=== PATIENT | male | born 1990 | race Caucasian/White ===

== ENCOUNTER 2020-01-23 19:03 | Outpatient (REF) | payer BC, SELFPAY ==
[2020-01-28 13:16] LABS: Varicella IgG Antibody Positive
[2020-01-28 16:19] LABS: HIV-1/2 Ag & Ab Screen Negative (Negative)
[2020-01-28 16:33] LABS: HSV Type 1 Ab, IgG Negative (Negative); Syphilis Serology (RPR) Negative (Negative)
[2020-01-28 16:34] LABS: HSV Type 2 Ab, IgG Negative
== END 2020-01-23 19:23 ==
LOC: NCHCN 19:03
PROVIDERS: PCP Internal Medicine; Visit Provider Family Medicine
DX: R30.0 Dysuria (principal)
CPT/HCPCS: 86787; 87389; 86592; 86695; 86696; 87086

== ENCOUNTER 2020-01-24 13:28 | Outpatient (REF) | payer BC, SELFPAY ==
[2020-01-29 13:06] LABS: Chlamydia Result Negative (Negative); GC Result Negative (Negative)
== END 2020-01-24 13:48 ==
LOC: NCHCN 13:28
PROVIDERS: PCP Internal Medicine; Visit Provider Family Medicine
DX: R30.0 Dysuria (principal)
CPT/HCPCS: 87491; 87591; 87086

== ENCOUNTER 2021-03-04 09:19 | Outpatient (REF) | payer BC, SELFPAY ==
[2021-03-04 15:02] LABS: HCT 47.8 % (40.0-50.0); HGB 16.3 g/dL (13.5-17.5); MCH 30.7 pg (27.0-33.0); MCHC 34.1 % (32.0-36.0); MPV 11.9 fL (8.0-11.0); Platelet Count 247 10^3/uL (130-400); RBC 5.31 10^6/uL (4.36-5.78); RDW 12.8 % (11.8-14.1); RDW-SD 41.9 fL; WBC 5.38 10^3/uL (4.4-10.8)
[2021-03-04 15:24] LABS: Anion Gap 9.6 mmol/L (3-11); BUN 15 mg/dL (7-18); CO2 27.4 mmol/L (21.0-32.0); Calcium 9.4 mg/dL (8.5-10.1); Chloride 105 mmol/L (98-107); Glucose 99 mg/dL (74-106); Potassium 4.4 mmol/L (3.5-5.1); Sodium 142 mmol/L (136-145); TSH (W/Ref FT4) 1.65 uIU/mL (0.36-3.74)
[2021-03-04 18:06] LABS: Vitamin D 25 Total 19.5 ng/mL (30-100)
== END 2021-03-04 09:20 | disposition home or self-care (01) ==
LOC: NCHCN 09:19
PROVIDERS: PCP Internal Medicine; Visit Provider Nurse Practitioner Family
DX: R53.83 Other fatigue (principal)
CPT/HCPCS: 80048; 82306; 85027; 84443

== ENCOUNTER 2022-09-04 13:07 | Emergency (ER) | payer BC, SELFPAY ==
--- NOTE | 2022-09-04 13:15 | DI.RAD_ITS ---
Exam(s) XR WRIST RT COMPL NAVICULAR EXAM: XR WRIST RT COMPL NAVICULAR CLINICAL HISTORY: pain. TECHNIQUE: 2D digital imaging was performed of the right wrist. Four views were obtained. Scaphoid, PA, lateral and oblique views were obtained. COMPARISON: No exams were available for comparison FINDINGS: BONES: There is a lucency seen through the waist of the scaphoid suspicious for nondisplaced fracture . No bony destructive lesion is seen. JOINTS: The carpal bones are normally aligned. SOFT TISSUE: Soft tissue swelling. IMPRESSION: Nondisplaced fracture through the waist of the scaphoid. DATA REPOSITORY: RADIATION DOSE DELIVERED:
--- NOTE | 2022-09-04 13:15 | ED.GENADUL_ITS ---
Discharge Plan Discharge Details Primary Care Provider: Ammy Gibbs ED Provider: Akira Farnsworth Home Meds and New Rx's Prescriptions: No Action paroxetine HCl 40 mg tablet 40 mg PO DAILY HPI General Date/Time Provider Initiated Documentation: 09/04/22 13:15 . Related Data Home Medications Medication Instructions Recorded Confirmed paroxetine HCl 40 mg tablet 40 mg PO DAILY 02/10/20 Allergies Allergy/AdvReac Type Severity Reaction Status Date / Time No Known Allergies Allergy Unverified 03/22/16 05:45 [facility] Medical History (Updated 02/10/20 @ 08:23 by Alexandria Ibrahim) Depression with anxiety Dysuria Fatigue Lower back pain Social History Smoking risk assessment performed?: No Do you feel safe in your relationship?: Yes
[2022-09-04 13:16] VITALS: RESP 18; O2SAT 98
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
--- NOTE | 2022-09-04 13:21 | W.EDPROG ---
Date of service: 09/04/22 Time of Service: 13:21 Medical Decision Making I had initially signed up to evaluate this patient but I did not see him nor participate his in his care in the ED. Discharge Plan Discharge Details Chief Complaint: Orthopedic Primary Care Provider: Ammy Gibbs ED Provider: Alex Linn Home Meds and New Rx's Prescriptions: No Action paroxetine HCl 40 mg tablet 40 mg PO DAILY bupropion HCl [Wellbutrin XL] 300 mg Tablet Extended Release 24 Hr 300 mg PO DAILY
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
== END 2022-09-04 14:20 | disposition home or self-care (01) ==
PROVIDERS: Emergency Provider Emergency Medicine; PCP Nurse Practitioner Family
DX: S62.001A Unspecified fracture of navicular [scaphoid] bone of right wrist, initial encounter for closed fracture (principal); V86.59XA Driver of other special all-terrain or other off-road motor vehicle injured in nontraffic accident, initial encounter
CPT/HCPCS: 29130; 99283; 73110

== ENCOUNTER 2022-09-14 15:33 | Outpatient (CLI) | payer BC, SELFPAY ==
--- NOTE | 2022-09-14 14:19 | DI.RAD_ITS ---
Exam(s) XR WRIST RT COMPLETE EXAM: XR WRIST RT COMPLETE CLINICAL HISTORY: right wrist fx. TECHNIQUE: 2D digital imaging was performed of the right wrist. Four views were obtained. Scaphoid, PA, lateral and oblique views were obtained. COMPARISON: CR,XR XR WRIST RT COMPL NAVICULAR from 09/04/2022 FINDINGS: BONES: There is again seen a lucency through the waist of the scaphoid suspicious for nondisplaced fr acture. No bony destructive lesion is seen. JOINTS: The carpal bones are normally aligned. The joint spaces are well maintained. SOFT TISSUE: Normal. IMPRESSION: Findings suspicious for nondisplaced scaphoid fracture. CT may be obtained for further evaluation. DATA REPOSITORY: RADIATION DOSE DELIVERED:
== END 2022-09-14 15:34 | disposition home or self-care (01) ==
LOC: DIORS 15:33
PROVIDERS: PCP Nurse Practitioner Family; Referring Provider Nurse Practitioner Family; Visit Provider Physician Assistant
DX: S62.001A Unspecified fracture of navicular [scaphoid] bone of right wrist, initial encounter for closed fracture (principal); X58.XXXA Exposure to other specified factors, initial encounter
CPT/HCPCS: 73110

== ENCOUNTER 2022-10-17 08:18 | Outpatient (CLI) | payer BC, SELFPAY ==
--- NOTE | 2022-10-17 08:00 | DI.RAD_ITS ---
Exam(s) XR WRIST RT COMPL NAVICULAR EXAM: XR WRIST RT COMPL NAVICULAR CLINICAL HISTORY: F/U FRACTURE. TECHNIQUE: 2D digital imaging was performed of the right wrist. Four views were obtained. Scaphoid, PA, lateral and oblique views were obtained. COMPARISON: CR,XR XR WRIST RT COMPL NAVICULAR from 09/04/2022 CR XR WRIST RT COMPLETE from 09/14/2022 FINDINGS: BONES: There has been no change in alignment of the fracture through the waist of the scaphoid. No n ew fracture is identified. No bony destructive lesion is seen. JOINTS: The carpal bones are normally aligned. SOFT TISSUE: Normal. IMPRESSION: Stable scaphoid fracture. DATA REPOSITORY: RADIATION DOSE DELIVERED:
== END 2022-10-17 08:19 | disposition home or self-care (01) ==
LOC: DIORS 08:19
PROVIDERS: PCP Nurse Practitioner Family; Referring Provider Nurse Practitioner Family; Visit Provider Physician Assistant
DX: V86.59XD Driver of other special all-terrain or other off-road motor vehicle injured in nontraffic accident, subsequent encounter (principal); X58.XXXD Exposure to other specified factors, subsequent encounter; S62.011D Displaced fracture of distal pole of navicular [scaphoid] bone of right wrist, subsequent encounter for fracture with routine healing
CPT/HCPCS: 73110

== ENCOUNTER 2022-11-17 08:15 | Outpatient (CLI) | payer BC, SELFPAY ==
--- NOTE | 2022-11-17 08:00 | DI.RAD_ITS ---
Exam(s) XR WRIST RT COMPL NAVICULAR EXAM: XR WRIST RT COMPL NAVICULAR CLINICAL HISTORY: f/u right wrist fx. TECHNIQUE: 2D digital imaging was performed. COMPARISON: CR RIGHT ANKLE COMPLETE from 08/08/2017 CR,XR XR WRIST RT COMPL NAVICULAR from 09/04/2022 CR XR WRIST RT COMPLETE from 09/14/2022 CR XR WRIST RT COMPL NAVICULAR from 10/17/2022 FINDINGS: 3 views No evidence of obvious fracture or dislocation nor significant ulnar variance. Benign bone island is again noted mid aspect of the scaphoid-navicular bone. No evidence of avascular necrosis. Scapholunate distance normal. IMPRESSION: No fracture evident on these images. DATA REPOSITORY: RADIATION DOSE DELIVERED:
== END 2022-11-17 08:16 | disposition home or self-care (01) ==
LOC: DIORS 08:15
PROVIDERS: PCP Nurse Practitioner Family; Visit Provider Physician Assistant
DX: S62.011D Displaced fracture of distal pole of navicular [scaphoid] bone of right wrist, subsequent encounter for fracture with routine healing (principal); X58.XXXD Exposure to other specified factors, subsequent encounter
CPT/HCPCS: 73110

== ENCOUNTER 2023-01-13 19:13 | Outpatient (REF) | payer BC, SELFPAY | END 2023-01-13 19:14 | disposition home or self-care (01) | LOC: LBN 19:13 | PROVIDERS: PCP Nurse Practitioner Family; Visit Provider Physician Assistant Medical | DX: J02.9 Acute pharyngitis, unspecified (principal) | CPT/HCPCS: 87070 ==

== ENCOUNTER 2023-04-11 13:10 | Outpatient (REF) | payer BC, SELFPAY ==
[2023-04-11 15:07] LABS: Vitamin D 25 Total 20.5 ng/mL (30-100)
== END 2023-04-11 13:11 | disposition home or self-care (01) ==
LOC: NCHCN 13:10
PROVIDERS: PCP Nurse Practitioner Family; Visit Provider Nurse Practitioner Family
DX: E55.9 Vitamin D deficiency, unspecified (principal)
CPT/HCPCS: 82306

== ENCOUNTER 2023-07-11 15:34 | Outpatient (REF) | payer BC, SELFPAY ==
[2023-07-11 21:30] LABS: TSH (W/Ref FT4) 1.93 uIU/mL (0.36-3.74)
[2023-07-11 21:45] LABS: Vitamin D 25 Total 35.8 ng/mL (30-100)
== END 2023-07-11 15:35 | disposition home or self-care (01) ==
LOC: NCHCN 15:34
PROVIDERS: PCP Nurse Practitioner Family; Visit Provider Nurse Practitioner Family
DX: F41.9 Anxiety disorder, unspecified (principal); E55.9 Vitamin D deficiency, unspecified
CPT/HCPCS: 82306; 84443

== ENCOUNTER 2024-05-03 10:10 | Outpatient (REF) | payer BC, SELFPAY ==
[2024-05-03 15:38] LABS: ALT 53 U/L (16-63); AST 20 U/L (15-37); Albumin 4.4 g/dL (3.4-5.0); Alkaline Phosphatase 64 U/L (46-116); Anion Gap 8.1 mmol/L (3-11); BUN 16 mg/dL (7-18); Bilirubin, Total 0.56 mg/dL (0.2-1.0); CO2 27.9 mmol/L (21.0-32.0); Calcium 9.6 mg/dL (8.5-10.1); Calculated LDL 144 mg/dL (<100); Chloride 105 mmol/L (98-107); Cholesterol 213 mg/dL (<200); Estimated GFR 100.66 (mL/min/1.73m2); Glucose 103 mg/dL (74-106); HDL Cholesterol 49 mg/dL (40-60); Potassium 4.6 mmol/L (3.5-5.1); Sodium 141 mmol/L (136-145); Total Protein 7.9 g/dL (6.4-8.2); Triglyceride 104 mg/dL (<150); Vitamin D 25 Total 24.1 ng/mL (30-100)
== END 2024-05-03 10:11 | disposition home or self-care (01) ==
LOC: NCHCN 10:10
PROVIDERS: PCP Nurse Practitioner Family; Visit Provider Nurse Practitioner Family
DX: Z13.220 Encounter for screening for lipoid disorders (principal); R03.0 Elevated blood-pressure reading, without diagnosis of hypertension; E55.9 Vitamin D deficiency, unspecified
CPT/HCPCS: 80053; 80061; 82306

== ENCOUNTER 2025-02-18 07:58 | Emergency (ER) | payer BC, SELFPAY ==
[2025-02-18 08:05] VITALS: BP 140/81; PULSE 97; RESP 16; TEMP 35.7; O2SAT 100
[2025-02-18 08:08] VITALS: BP 140/81; PULSE 97; RESP 16; TEMP 35.7; O2SAT 100
--- NOTE | 2025-02-18 08:19 | W.ED.GENAD ---
Discharge Plan Disposition Patient Disposition: Home Condition: Stable Discharge Details Clinical Impression: Nausea vomiting and diarrhea, Fever Primary Care Provider: Ammy Gibbs ED Provider: Meaghan Landeros Home Meds and New Rx's Prescriptions: New prednisone 50 mg tablet 50 mg PO DAILY 3 Days Qty: 3 0RF Rx Instructions: Take 1 tablet daily for the next 5 days Continued paroxetine HCl 40 mg tablet 40 mg PO DAILY bupropion HCl [Wellbutrin XL] 300 mg Tablet Extended Release 24 Hr 300 mg PO DAILY lisinopril 10 mg tablet 10 mg PO DAILY Patient Comments: TAKE ONE TABLET BY MOUTH EVERY DAY venlafaxine 75 mg capsule,extended release 24hr 75 mg PO DAILY Patient Comments: TAKE ONE CAPSULE BY MOUTH EVERY DAY pantoprazole 40 mg tablet,delayed release (DR/EC) 40 mg PO DAILY Patient Comments: TAKE ONE TABLET BY MOUTH EVERY DAY ondansetron 4 mg tablet,disintegrating 4 mg PO Q8H PRN Discharge Instructions Instructions: Fever, Adult ED, Nausea and Vomiting, Adult ED Additional Instructions: No evidence of significant abnormality on your labs, negative for COVID flu RSV. Chest x-ray within normal limits. No evidence of a urinary tract infection. I do suspect that this may be caused by a virus. Please take the nausea medication up to 3 times daily 20 to 30 minutes before eating or drinking anything. You may continue to take Benadryl 1 or 2 tablets every 6-8 hours as needed for rash or itching. You may also take a nondrowsy similar antihistamine during the day. Follow up with primary care provider in 3-5 days. Return to ED sooner if any worsening or concerns. Please take Tylenol or Ibuprofen with food every 4-6 hours as needed for pain and swelling. Stand Alone Forms: Portal Information Referrals: Ammy Gibbs [Primary Care Provider, Medicine] - 1 week Referral Note: ER follow-up, call for an appointment HPI General Mode of arrival: ambulatory. Date/Time Provider Initiated Documentation: 02/18/25 08:03. Limitations to Documentation: no limitations. Information obtained by: patient, RN notes reviewed and old records reviewed. HPI Narrative: 45-year-old male presents to the ER with a chief complaint of fever Tmax 102, bilateral shoulder pain, rash which is pruritic, body aches and chills since . Patient also reports associated with nausea vomiting and diarrhea. Denies any abdominal pain. Related Data Home Medications ?Medication ?Instructions ?Recorded ?Confirmed paroxetine HCl 40 mg tablet 40 mg PO DAILY 02/10/20 11/17/22 bupropion HCl 300 mg 24 hr tablet, 300 mg PO DAILY 09/04/22 11/17/22 extended release (Wellbutrin XL) lisinopril 10 mg tablet 10 mg PO DAILY 02/18/25 02/18/25 ondansetron 4 mg disintegrating 4 mg PO Q8H PRN 02/18/25 02/18/25 tablet pantoprazole 40 mg tablet,delayed 40 mg PO DAILY 02/18/25 02/18/25 release prednisone 50 mg tablet 50 mg PO DAILY Inflammation 3 days 02/18/25 #3 tabs venlafaxine 75 mg capsule,extended 75 mg PO DAILY 02/18/25 02/18/25 release 24 hr Previous Rx's ?Medication ?Instructions ?Recorded prednisone 50 mg tablet 50 mg PO DAILY Inflammation 3 days 02/18/25 #3 tabs Allergies Allergy/AdvReac Type Severity Reaction Status Date / Time No Known Allergies Allergy Unverified 02/18/25 08:08 General Stated Complaint: RespSymp JONO: 3 Review of Systems All systems reviewed & are unremarkable except as noted in HPI and below Constitutional Constitutional: Reports as per HPI, Reports body ache(s) and Reports fever(s) Cardiovascular Cardiovascular: Denies chest pain Respiratory Respiratory: Denies cough Gastrointestinal Gastrointestinal: Denies abdominal pain, Reports diarrhea, Reports nausea and Reports vomiting Integumentary/Breasts Skin/Breast: Reports pruritus, Reports erythema and Reports rash Exam Narrative Exam Narrative: Constitutional: Alert and oriented x3. Appears stated age. Normal body habitus. Head: Normocephalic, no trauma. Eyes: Pupils PERRL, Red reflex noted, EOM's intact. Eyelids symmetrical without lesions, discharge, or swelling. ENT: Bilateral TM's WNL, External ear normal to inspection, no mastoid TTP, swelling, or erythema, Nasal turbinates WNL, no nasal discharge. Normal dentition, Posterior pharynx WNL, no exudate. Chest: RRR, Normal S1, S2, distal pulses intact. Resp: Lungs clear to auscultation bilaterally, no wheezes, rales, or rhonchi. Abdomen: Soft, non-distended, Normoactive bowel sounds all 4 quads. Musculoskeletal: Normal gait, Moves all 4 extremities without difficulty. Skin: Red, flat discoloration to skin which is pruritic, no maculopapules no lesions no urticaria. Capillary refill less than 2 sec. Neurologic: Cranial nerves II-XII intact. Alert and oriented x 3. Motor: No deficits noted. Sensory: Intact bilaterally all 4 extremities. Hematologic/Lymphatic: No ecchymosis, no lymphadenopathy. Course Vital Signs Vital signs: Vital Signs Temperature 35.7 C L 02/18/25 08:05 Pulse 97 H 02/18/25 08:05 Respiratory Rate 16 02/18/25 08:05 Blood Pressure 140/81 02/18/25 08:05 Pulse Oximetry 100 02/18/25 08:05 Temperature 35.7 C L 02/18/25 08:08 Temperature Source Temporal Artery Scan 02/18/25 08:08 Pulse 97 H 02/18/25 08:08 Respiratory Rate 16 02/18/25 08:08 Blood Pressure 140/81 02/18/25 08:08 Blood Pressure Position Sitting 02/18/25 08:08 Pulse Oximetry 100 02/18/25 08:08 Oxygen Delivery Method Room Air 02/18/25 08:08 Oxygen Flow Rate 0 02/18/25 08:08 Pain Level 3 02/18/25 08:08 Comment Averaging shoulder pain at 8 02/18/25 08:08 Lab/Test Results Lab/Test Results: 02/18/25 08:17 Blood Blood Culture - Pending 02/18/25 08:17 Blood Blood Culture - Pending Medical Decision Making 45-year-old male presents to the ER with a chief complaint of fever Tmax 102, bilateral shoulder pain, rash which is pruritic, body aches and chills since . Patient also reports associated with nausea vomiting and diarrhea. Denies any abdominal pain. Workup ordered including CBC CMP urinalysis blood cultures x 2 chest x-ray and Fluvid swab. Will give a liter of fluid and some Zofran. 10:50 AM: On patient reevaluation his rash has improved. No further emesis noted. He has no complaints of abdominal pain. I did discuss his labs with him which are largely unremarkable. No leukocytosis COVID flu and RSV are negative. Urinalysis is pending at this time. Chest x-ray shows no acute abnormality. Will give patient Zofran 3 tablets to go, discussed home care including taking 1-2 Benadryl tablets every 6-8 hours as needed for rash. Or other similar nondrowsy antihistamine. Will give him 3 days of prednisone. Will instruct to follow-up with primary care provider and strict return instructions if anything gets worse. Patient remained hemodynamically stable throughout the remainder of her stay. Discussed strict return instructions. This text was generated using [employer]ation system, please disregard any oddities of phrase or misspellings. Lab Data Lab results reviewed: Yes I reviewed the patient's lab results. Labs: 02/18/25 09:10 Blood Blood Culture - Pending 02/18/25 08:48 Blood Blood Culture - Pending Laboratory Tests Range/Units 02/18/25 02/18/25 08:48 09:52 WBC (4.4-10.8) 10^3/uL 4.50 RBC (4.36-5.78) 10^6/uL 5.18 Hgb (13.5-17.5) g/dL 15.6 Hct (40.0-50.0) % 44.9 MCV (80-95) fL 87 MCH (27.0-33.0) pg 30.1 MCHC (32.0-36.0) % 34.7 RDW (11.8-14.1) % 12.4 Plt Count (130-400) 10^3/uL 212 MPV (8.0-11.0) fL 10.2 Immature Gran % % 0.0 Neutrophils % % 56.0 Lymphocytes % % 29.0 Atypical Lymphs % % 3 Monocytes % % 9.0 Eosinophils % % 3.0 Basophils % % 0.0 Nucleated RBC % (0.0-0.3) % 0.0 Absolute Neutrophils (1.2-6.7) 10^3/uL 2.52 Absolute Lymphocytes (1.2-3.4) 10^3/uL 1.44 Absolute Monocytes (0.1-0.8) 10^3/uL 0.41 Absolute Eosinophils (0.0-0.7) 10^3/uL 0.14 Absolute Basophils (0.0-0.2) 10^3/uL 0.00 RBC Morphology Normal Sodium (136-145) mmol/L 137 Potassium (3.5-5.1) mmol/L 4.1 Chloride (98-107) mmol/L 102 Carbon Dioxide (20.0-31.0) mmol/L 26.2 Anion Gap (3-11) mmol/L 8.8 BUN (9-23) mg/dL 13 Creatinine (0.73-1.18) mg/dL 1.02 Est GFR (CKD-EPI 2020) (mL/min/1.73m2) 82.62 Glucose (74-106) mg/dL 97 Calcium (8.3-10.6) mg/dL 8.6 Total Bilirubin (0.2-1.2) mg/dL 0.80 AST (<34) U/L 22 ALT (10-49) U/L 47 Alkaline Phosphatase (46-116) U/L 64 Total Protein (5.7-8.2) g/dL 7.7 Albumin (3.4-5.0) g/dL 4.4 COVID-19 Source Nasopharynx SARS-CoV-2 (PCR) (Negative) Negative Influenza Type A (PCR) (Negative) Negative Influenza Type B (PCR) (Negative) Negative RSV (PCR) (Negative) Negative PFSH All Active Problems (Updated 02/18/25 @ 10:54 by Meaghan Landeros NP) Fever (Acute) Nausea vomiting and diarrhea (Acute) Fracture of scaphoid bone of right wrist (Acute 09/04/22) Medical History Depression with anxiety Fatigue Lower back pain Dysuria Social History Smoking/Tobacco Use Status: Never Smoking risk assessment performed?: Yes Alcohol Intake: current Alcohol Intake frequency: holidays/special occasions only Drug use: Socially Substance use type: marijuana Housing: house Current gender identity: male Do you feel safe in your relationship?: Yes
[2025-02-18 09:00] LABS: Abs Immature Grans 0.01 10^3/uL (0.0-0.06); HCT 44.9 % (40.0-50.0); HGB 15.6 g/dL (13.5-17.5); MCH 30.1 pg (27.0-33.0); MCHC 34.7 % (32.0-36.0); MCV 87 fL (80-95); MPV 10.2 fL (8.0-11.0); Platelet Count 212 10^3/uL (130-400); RBC 5.18 10^6/uL (4.36-5.78); RDW 12.4 % (11.8-14.1); RDW-SD 39.5 fL; WBC 4.50 10^3/uL (4.4-10.8)
[2025-02-18 09:16] LABS: ALT 47 U/L (10-49); AST 22 U/L (<34); Albumin 4.4 g/dL (3.4-5.0); Alkaline Phosphatase 64 U/L (46-116); Anion Gap 8.8 mmol/L (3-11); BUN 13 mg/dL (9-23); Bilirubin, Total 0.80 mg/dL (0.2-1.2); CO2 26.2 mmol/L (20.0-31.0); Calcium 8.6 mg/dL (8.3-10.6); Chloride 102 mmol/L (98-107); Glucose 97 mg/dL (74-106); Potassium 4.1 mmol/L (3.5-5.1); Sodium 137 mmol/L (136-145); Total Protein 7.7 g/dL (5.7-8.2)
--- NOTE | 2025-02-18 09:42 | DI.RAD_ITS ---
Exam(s) XR CHEST 2V PA LATERAL EXAM: XR CHEST 2V PA LATERAL CLINICAL HISTORY: Cough, Fever TECHNIQUE: 2D digital imaging was performed of the chest. Two images were obtained. PA and lateral views were obtained. COMPARISON: CR CHEST 2 VIEWS PA,LAT from 12/08/2007 FINDINGS: MEDIASTINUM: Normal. HEART: Normal. PULMONARY VASCULATURE: Normal. LUNGS: Clear. PLEURAL SPACE: No pleural effusion or pneumothorax. BONE:Within normal limits for the patient's age. There is a new mild compression of the superior endplate of T12. This is a age indeterminate. OTHER FINDINGS:Normal. IMPRESSION: 1. No acute pulmonary findings. 2. Compression of the superior endplate of T12. This was not present in 2007. There are no comparison examination since that time. The appearance suggest an old compression fracture. Please correlate with patient's clinical history. DATA REPOSITORY: RADIATION DOSE DELIVERED:
[2025-02-18] MEDS: diphenhydrAMINE 50 MG/ML VIAL 12.5 MG IVP (09:44)
[2025-02-18] MEDS: Normal Saline 500 ML IV (09:45)
[2025-02-18] MEDS: Ondansetron 4 MG/2 ML VIAL IVP (09:45)
[2025-02-18] MEDS: Normal Saline Flush 10 ML SYR IVP (09:45)
[2025-02-18 10:06] LABS: Immature Grans % 0.0 %
[2025-02-18 10:07] LABS: RBC Morphology Normal
[2025-02-18 10:45] LABS: COVID-19 PCR Negative (Negative); RSV PCR Negative (Negative)
[2025-02-18 10:52] LABS: Glucose Negative (Negative)
[2025-02-18] MEDS: Ondansetron O.D.T. 4 MG TABEF, 3 TABS/BTL PO (11:07)
[2025-02-18 11:10] VITALS: BP 132/86; PULSE 79; RESP 12; O2SAT 99
== END 2025-02-18 11:11 | disposition home or self-care (01) ==
LOC: ER 11:23
PROVIDERS: Emergency Provider Registered Nurse Emergency; PCP Nurse Practitioner Family
DX: R11.2 Nausea with vomiting, unspecified (principal); R19.7 Diarrhea, unspecified; R50.9 Fever, unspecified; R21 Rash and other nonspecific skin eruption
CPT/HCPCS: 99283; 99284; 36415; 96374; 96375; 80053; 87040; 87637; 71046; 81003; 85025; J1200; J2405

== ENCOUNTER → 2025-03-03 00:42 | Outpatient (CLI) | payer BC, SELFPAY ==
--- NOTE | 2025-03-03 | DI.RAD_ITS ---
Exam(s) XR SHOULDER LT COMPLETE 2+V EXAM: XR SHOULDER LT COMPLETE 2+V CLINICAL HISTORY: LT SHOULDER PAIN, M25.512. TECHNIQUE: 2D digital imaging was performed. Four views. COMPARISON: No exams were available for comparison FINDINGS: BONES: No acute fracture is present. No bony destructive lesion is seen. JOINTS: No dislocation present. AC joint is not widened. No significant degenerative changes. SOFT TISSUE: Normal. IMPRESSION: Unremarkable radiographs of the left shoulder. DATA REPOSITORY: RADIATION DOSE DELIVERED:
== END ==
PROVIDERS: PCP Nurse Practitioner Family; Visit Provider Nurse Practitioner Family
DX: M25.512 Pain in left shoulder (principal)
CPT/HCPCS: 73030

== ENCOUNTER 2025-03-03 01:28 | Outpatient (CLI) | payer BC, SELFPAY ==
[2025-03-03 08:46] LABS: ESR 4 mm/hr (0-15)
[2025-03-03 09:14] LABS: TSH (W/Ref FT4) 2.35 uIU/mL (0.55-4.78)
[2025-03-03 09:15] LABS: Vitamin D 25 Total 33 ng/mL (30-100)
[2025-03-03 17:22] LABS: CRP, High Sensitivity 7.22 mg/L (See Note)
[2025-03-04 10:44] LABS: Lyme Ab w Rflx to Lyme Confirm Negative (Negative)
[2025-03-11 19:28] LABS: Testosterone, Free 99.4 pg/mL (35.0-155.0)
== END 2025-03-03 01:29 | disposition home or self-care (01) ==
LOC: LBO 09:01 → NCHCN 14:58
PROVIDERS: PCP Nurse Practitioner Family; Visit Provider Nurse Practitioner Family
DX: M25.512 Pain in left shoulder (principal); R53.82 Chronic fatigue, unspecified; E55.9 Vitamin D deficiency, unspecified
CPT/HCPCS: 36415; 82306; 84402; 84403; 85652; 86141; 84443; 86038; 86431; 86618

== ENCOUNTER 2025-03-12 00:42 | Outpatient (CLI) | payer BC, SELFPAY ==
[2025-03-13 19:43] LABS: JO 1 Ab, IgG <0.2 U; RNP Ab, IgG 0.7 U; SS-A/Ro, IgG <0.2 U; SS-B (La) Ab, IgG <0.2 U; Scl 70 Ab, IgG <0.2 U; Sm Ab, IgG <0.2 U
== END 2025-03-12 00:43 | disposition home or self-care (01) ==
LOC: LBO 00:49
PROVIDERS: PCP Nurse Practitioner Family; Visit Provider Nurse Practitioner Family
DX: R76.89 Other specified abnormal immunological findings in serum (principal)
CPT/HCPCS: 36415; 86225; 86235